=== PATIENT | male | born 1990 | race Caucasian/White ===

== ENCOUNTER 2021-07-24 15:42 | Emergency (ER) | payer MEDICAID, SELFPAY ==
[2021-07-24 16:34] VITALS: BP 109/71; PULSE 99; RESP 18; TEMP 36.8; O2SAT 98; BMI 22.2
[2021-07-24] MEDS: Acetaminophen Oral Liquid 650 MG/20.3 ML SOLUTION PO (16:40)
--- NOTE | 2021-07-24 18:53 | ED_ITS ---
HPI - Fall General Chief Complaint: Fall Stated Complaint: fall Time Seen by Provider: 07/24/21 18:53 History of Present Illness HPI Narrative: Patient complains of mild back pain after a fall he tripped on the stairs and slid down hitting his back on a carpeted steps, no other injury no headache no neck pain no numbness weakness or tingling no changes to bowel or bladder Related Data Allergies Allergy/AdvReac Type Severity Reaction Status Date / Time cat dander [CATS] Allergy Unknown ITCHY Verified 07/24/21 16:33 Review of Systems Review of Systems: Positive for back pain after fall Negatives are no dizziness no weakness no loss of consciousness no headache no head strike no neck pain no numbness weakness or tingling no chest pain no shortness of breath no extremity pains or joint pains no skin lacerations Yes all other systems are reviewed and are negative FOR[facility]LY [facility] Past Medical History Source: nursing notes reviewed Medical History (Updated 07/25/21 @ 00:02 by Background Daemon) ADHD Anxiety Bipolar 1 disorder H/O ETOH abuse Opiate addiction Schizophrenia Seizure Subdural hematoma Social History Social History Advance Directives: No Advance Directives Information Provided: Yes Physical Exam Vital Signs: Vital Signs: Last Vital Signs Temp 98.2 F 07/24/21 16:34 Pulse 99 07/24/21 16:34 Resp 18 07/24/21 16:34 BP 109/71 07/24/21 16:34 Pulse Ox 98 07/24/21 16:34 Body Mass Index 22.2 General appearance no acute distress Head is normocephalic atraumatic Neck is supple nontender Respiratory no distress No chest wall tenderness Abdomen soft nontender The back had lower lumbar tenderness, no focal bony tenderness, pain was reproduced with movement, no CVA tenderness, skin was intact Extremities full range of motion x4 Neuro no focal bony deficit Course Course Course Narrative: Patient with mild soft tissue tenderness in his back but no significant bony tenderness is discharged home with normal neurologic exam and no changes to bowel or bladder no fevers, pain likely from muscle strain or contusion to the back Discharge Plan Discharge Clinical Impression: Contusion of back Patient Disposition: Home, Self-Care Additional Instructions: There is no sign of any significant injury, you are okay for all activities with no restrictions Physical exam was completely normal as were vital signs Interventions: ED Discharge Assessment Last Done: 07/24/21 19:34 Discharge Date/Time: 07/24/21 19:37
== END 2021-07-24 19:37 | disposition home or self-care (01) ==
LOC: HO.ED 19:06
PROVIDERS: Emergency Provider Emergency Medicine; PCP Internal Medicine
DX: S30.0XXA Contusion of lower back and pelvis, initial encounter (principal); W10.8XXA Fall (on) (from) other stairs and steps, initial encounter; Y93.9 Activity, unspecified; Y92.9 Unspecified place or not applicable; Y99.9 Unspecified external cause status
CPT/HCPCS: 99283; 99284

== ENCOUNTER 2023-08-22 14:42 | Outpatient (REF) | payer MEDICAID, SELFPAY ==
[2023-08-22 17:21] LABS: MANUAL DIFF FLAG NO
[2023-08-22 17:34] LABS: Basophils Absolute Auto 0.1 X10*3/uL (0.0-0.2); Basophils Percent Auto 0.6 % (0-2); Eosinophils Absolute Auto 0.1 X10*3/uL (0.0-0.4); Eosinophils Percent Auto 0.7 % (0-4); Hematocrit 48.7 % (42.0-52.0); Hemoglobin 16.3 g/dl (14.0-18.0); Imm Gran Abs Auto 0.02 X10*3/uL (0.00-0.03); Imm Gran Pct Auto 0.2 % (0.0-0.4); Lymphocytes Absolute Auto 1.9 X10*3/uL (1.2-4.9); Lymphocytes Percent Auto 19.7 % (20-40); Mean Corpuscular HGB Conc 33.5 g/dl (31.0-36.0); Mean Corpuscular Hemoglobin 30.2 pg (27.0-33.0); Mean Corpuscular Volume 90.2 fL (80.0-98.0); Mean Platelet Volume 10.6 fL (9.4-12.4); Monocytes Absolute Auto 0.5 X10*3/uL (0.1-1.2); Monocytes Percent Auto 5.2 % (2-11); Neutrophils Absolute Auto 7.2 x10*3/uL (2.0-8.3); Neutrophils Percent Auto 73.6 % (45-73); Platelet Count 260 X10*3/uL (160-400); Red Cell Distribution Width 12.6 % (11.0-16.0); White Blood Count 9.7 X10*3/uL (4.8-10.8)
[2023-08-22 17:43] LABS: Alanine Aminotransferase 114 U/L (0-40); Albumin Level 4.7 g/dL (3.5-5.0); Alkaline Phosphatase 73 U/L (39-117); Aspartate Amino Transferase 54 U/L (5-37); Bilirubin Direct 0.2 mg/dL (0.0-0.5); Bilirubin Total 0.6 mg/dL (0.0-1.0); Cholesterol 178 mg/dL (<200); HDL Cholesterol 42 mg/dL (>40); LDL Cholesterol Calculated 114 mg/dL (<100); Total Protein 7.9 g/dL (6.5-8.0); Triglycerides 110 mg/dL (<150)
[2023-08-22 17:58] LABS: TSH reflex Free T4 0.54 uIU/mL (0.32-4.0)
== END 2023-08-22 14:43 | disposition home or self-care (01) ==
LOC: HO.CHCLDS 14:42
PROVIDERS: Visit Provider Internal Medicine
DX: Z00.00 Encounter for general adult medical examination without abnormal findings (principal)
CPT/HCPCS: 36415; 80061; 80076; 84443; 85025

== ENCOUNTER 2024-10-27 14:29 | Outpatient (REF) | payer MEDICAID, SELFPAY ==
[2024-10-27 15:09] LABS: HBS Num1 0.62 mIU/mL (0-7.99); HBsAGNum1 0.49 S/CO (0.00-0.99); HIV AB/AG Nonreactive (Nonreactive); HIV Num 1 0.05 S/CO (0.00-0.99); Hepatitis B Surface Antigen Negative (Negative); ~Hepatitis B Surface Antibody NONREACTIVE (Nonreactive); ~Hepatitis C Antibody Reactive (Nonreactive)
[2024-10-28 08:41] LABS: HBc Num1 0.11 S/CO (0.00-0.79); Hepatitis B Core Antibody Nonreactive (Nonreactive)
== END 2024-10-27 14:30 | disposition home or self-care (01) ==
LOC: HO.LNP 14:29
PROVIDERS: Visit Provider Internal Medicine
DX: Z11.4 Encounter for screening for human immunodeficiency virus [HIV] (principal); Z11.59 Encounter for screening for other viral diseases
CPT/HCPCS: 86704; 86706; 86803; 87340; 87389